=== PATIENT | female | born 1990 | race Caucasian/White ===

== ENCOUNTER 2016-10-31 00:31 | Emergency (ER) | payer BC ==
[~2016-10-31] VITALS: Ht 152.4 cm; Wt 59.0 kg
--- NOTE | ~2016-10-31 | EKG ---
PATIENT: ANGELA LOVE UNIT #: [id number] Ventricular Rate: 77 BPM Atrial Rate: 77 BPM P-R Interval: 130 ms QRS Duration: 84 ms Q-T Interval: 380 ms QTC Calculation(Bezet): 430 ms P [place]: 41 degrees Calculated R [place]: 58 degrees Calculated T [place]: 33 degrees Diagnosis Line: Normal sinus rhythm with sinus arrhythmia Diagnosis Line: Normal ECG Diagnosis Line: No previous ECGs available Diagnosis Line: Confirmed by PASTOR FELICIANO MD ([id number]) on Diagnosis Line: 11/01/2016 8:23:45 AM INTERPRETING MD: JODIE RAMIREZ
--- NOTE | ~2016-10-31 | CR63 ---
[facility]. [facility] A Service of [facility] & [facility] RADIOLOGY TEXT RESULTS PATIENT: ANGELA LOVE LOCATION: SED : [birth year] UNIT #: [id number] AGE: [address]: Ofelia Sterling MD SEX: F ORDER DR: [id number] [address] [address] [id number] E MR#: [id number] Acc #: [id number] NAME: ANGELA LOVE : 1990 SEX: F STUDY DATE/TIME: 10/31/2016 0:53 UNIT: SED ROOM: STUDY DESCRIPTION: CR Chest 2 View Attending Physician: Ofelia Sterling M.D. Ordering Physician: fOelia Sterling M.D. Primary Care Physician: Marce Betts M.D. MEDICAL IMAGING REPORT This report is preliminary unless electronic signature is present. EXAM Chest x-ray, 10/31/2016 HISTORY 26-year-old female in the ED complaining of chest tightness and difficulty breathing. Symptoms began yesterday afternoon. TECHNIQUE PA and lateral upright chest series FINDINGS The heart size and pulmonary vascularity are normal. The lungs are expanded and clear. No visible pulmonary infiltrate or pleural effusion. No change since 12/16/2014. IMPRESSION Negative chest. No change since 12/16/2014. Dictated by... Genaro Hager M.D. THIS IS AN ELECTRONICALLY VERIFIED REPORT Genaro Hager M.D. at 10/31/2016 4:46 PM Chloe TD: 10/31/2016 11:00 JOB #: [id number] MEDICAL IMAGING REPORT Page 1 of 1
[~2016-10-31 00:31] MED LIST: BACITRACIN30 GM TOP; BIRTH CONTROL PILL PO; FLOMAX0.4 M1 PO; LORTAB 10-5001 EACH PO; YASMIN 28 TABLE1 TAB PO; ZOFRAN ODT4 MG PO
== END 2016-10-31 01:47 | disposition home or self-care (01) ==
LOC: SED 00:31
DX: J06.9 Acute upper respiratory infection, unspecified (principal)
CPT/HCPCS: 71020; 93005; 94640; 99285